=== PATIENT | male | born 1960 | race Asian ===

== ENCOUNTER 2016-12-05 17:17 | Emergency (ER) | payer OTHER ==
[~2016-12-05] VITALS: Ht 167.6 cm; Wt 60.6 kg
[2016-12-05] MEDS ORDERED: SODIUM CHLORIDE 0.9% 1,000 ML IV ONE (18:11)
[2016-12-05] MEDS ORDERED: ONDANSETRON 2MG/ML, 2ML ONE (18:16)
[2016-12-05] MEDS ORDERED: MECLIZINE CHEWABLE 25 MG TAB ONE (18:16)
[2016-12-05] MEDS ORDERED: MORPHINE SULFATE 4 MG/ML, 1ML ONE (18:16)
[2016-12-05] MEDS ORDERED: ONDANSETRON 2MG/ML, 2ML IVPush ONE (18:30)
[2016-12-05] MEDS ORDERED: MECLIZINE CHEWABLE 25 MG TAB PO ONE (18:30)
[2016-12-05] MEDS ORDERED: MORPHINE SULFATE 4 MG/ML, 1ML IVPush PRN (18:30)
[2016-12-05 19:49] VITALS: BP 131/79
== END 2016-12-05 19:51 | disposition home or self-care (01) ==
LOC: ED 17:57
DX: J01.00 Acute maxillary sinusitis, unspecified (principal); H81.11 Benign paroxysmal vertigo, right ear; K21.9 Gastro-esophageal reflux disease without esophagitis
CPT/HCPCS: 36415; 71010; 85025; 96361; 96374; 96375; 99285; J2405; J7030